=== PATIENT | female | born 1965 | race Caucasian/White ===

== ENCOUNTER → 2016-11-17 | Outpatient (CLI) | payer OTHER | LOC: RAD 01:46 | DX: Z12.31 Encounter for screening mammogram for malignant neoplasm of breast (principal) ==

== ENCOUNTER → 2017-08-15 | Outpatient (CLI) | payer OTHER ==
--- NOTE | ~2017-08-15 | P ---
[facility] [place] [address] PROCEDURE REPORT Name: GEN LYNNE Tosha Room #: REG [facility]#: [id number] Admission: 08/15/17 Attend Phys: Rai Rivas MD Discharge: Date of : 67 Report #: [id number] THIS REPORT FOR: //name// CC: SOL Rivas BRIEF HISTORY: The patient is a 51-year-old woman who presents for average risk screening colonoscopy. This is her first colonoscopy. PREOPERATIVE DIAGNOSIS: Average risk screening colonoscopy. POSTOPERATIVE DIAGNOSIS: Normal average risk screening colonoscopy. MEDICATIONS: Deep sedation with propofol per Anesthesia. SPECIMEN: None. ESTIMATED BLOOD LOSS: None. PROCEDURE: Colonoscopy to cecum and terminal ileum. FINDINGS: Prior to propofol sedation, procedure of colonoscopy discussed with the patient as well as potential risks and its complications. She indicates she understands and desires to proceed. DESCRIPTION OF PROCEDURE: With the patient in left lateral decubitus position, digital examination was completed which revealed no abnormalities. Subsequently, the Olympus video colonoscope was introduced in the rectum, advanced under direct vision to the cecum. Done with minimal difficulty. The cecum was identified by the ileocecal valve and the appendiceal orifice. I was able to visualize the distal segment of terminal ileum, which was inspected and noted to be unremarkable. At that point, the scope was slowly withdrawn and careful circumferential views obtained including retroflexing the scope in the ascending colon. As the scope was withdrawn, the mucosa was inspected. The prep was good. The mucosa was within normal limits, normal vascular pattern, normal light reflex. No neoplastic lesions were seen. As we withdrew the scope, no abnormalities were identified. The scope was withdrawn in the rectum. Upon retroflexion, no abnormalities were seen. Scope was withdrawn in the rectum. Upon retroflexion, no abnormalities were seen. The scope was withdrawn. The patient tolerated the procedure well. CONDITION OF THE PATIENT UPON DISCHARGE: Following the procedure, the patient was drowsy, arousable and conversant, and she will be discharged home when fully ambulatory. INSTRUCTIONS TO THE PATIENT AND FAMILY AT THE TIME OF DISCHARGE No neoplastic [facility] [address] [place] [address] PROCEDURE REPORT Name: GEN LYNNE Room #: REG [facility]#: [id number] Admission: 08/15/17 Attend Phys: Rai Rivas MD Discharge: Date of : 67 Report #: [id number] lesions were seen. I have recommended she return in 10 years for average risk colonoscopy or sooner if some problems should arise. This is the patient's first colonoscopy, withdrawal time from cecum was 14 minutes 15 seconds. <ELECTRONICALLY SIGNED> By: Rai Rivas MD 08/15/17 1559 [id number] [id number] Rai Rivas MD /nt
== END | disposition home or self-care (01) ==
LOC: GI 07:28
DX: Z12.11 Encounter for screening for malignant neoplasm of colon (principal)
CPT/HCPCS: 62110; 62900

== ENCOUNTER → 2017-11-18 | Outpatient (CLI) | payer OTHER | LOC: RAD 01:28 | DX: Z12.31 Encounter for screening mammogram for malignant neoplasm of breast (principal) ==

== ENCOUNTER → 2018-11-20 | Outpatient (CLI) | payer OTHER | LOC: RAD 03:29 | DX: Z12.31 Encounter for screening mammogram for malignant neoplasm of breast (principal) ==

== ENCOUNTER → 2019-11-28 | Outpatient (CLI) | payer OTHER | LOC: BC 11-22 11:55 | PROVIDERS: ATTEND Obstetrics & Gynecology | DX: Z12.31 Encounter for screening mammogram for malignant neoplasm of breast (principal) ==

== ENCOUNTER → 2020-12-08 | Outpatient (CLI) | payer OTHER | LOC: BC 10:31 | PROVIDERS: ATTEND Obstetrics & Gynecology | DX: Z12.31 Encounter for screening mammogram for malignant neoplasm of breast (principal) ==